=== PATIENT | male | born 1975 | race Caucasian/White ===

== ENCOUNTER 2016-06-22 18:53 | Emergency (ER) | payer OTHER ==
[~2016-06-22] VITALS: Ht 162.6 cm; Wt 72.1 kg
[~2016-06-22 18:53] MED LIST: AUGMENTIN 875 M1 TAB PO; NORCO 5/325 MG1 TAB PO
[2016-06-22 19:09] VITALS: BP 123/76
[2016-06-22] MEDS ORDERED: ASPIRIN 81 MG TAB.CHEW PO ONE (19:20)
--- NOTE | 2016-06-22 20:45 | NUR ---
TO ER BED 3
--- NOTE | 2016-06-22 20:47 | NUR ---
41 Y/O M PRESENTS TO ER W/C/O CHEST PAIN INTERMITTENTLY X3 DAYS. PT STATES THE PAIN RADIATES FROM THE RIGHT SIDE OF HIS CHEST TO THE LEFT. NO S/S OF DISTRESS AT THIS MOMENT. PT ON MONITOR, VSS. ER MD MADE AWARE.
--- NOTE | 2016-06-22 21:13 | NUR ---
Patient being evaluated by physician at bedside.
[2016-06-22] MEDS ORDERED: LIDOCAINE VISCOUS 2% 20 ML UDC PO ONE (21:35)
[2016-06-22] MEDS ORDERED: FAMOTIDINE 20 MG TAB PO ONE (21:35)
[2016-06-22] MEDS ORDERED: ALUMINUM HYD/MAG/SIMETHICONE 30 ML UDC PO ONE (21:35)
[2016-06-22 23:19] VITALS: BP 116/74
--- NOTE | 2016-06-22 23:19 | NUR ---
Patient discharged with v/s stable. Written and verbal after care instructions given and explained. Patient alert, oriented and verbalized understanding of instructions. Ambulatory with steady gait. All questions addressed prior to discharge. ID band removed. Patient advised to follow up with PMD IN 2-3 DAYS OR RETURN TO ER IF CONDITION WORSENS. Rx of PEPCID given. Patient educated on indication of medication including possible reaction and side effects. Opportunity to ask questions provided and answered.
== END 2016-06-22 23:19 | disposition home or self-care (01) ==
LOC: MED 18:53
DX: R07.89 Other chest pain (principal); K21.9 Gastro-esophageal reflux disease without esophagitis